=== PATIENT | male | born 1975 | race Caucasian/White ===

== ENCOUNTER 2020-05-18 21:54 | Inpatient (IN) | payer MEDICAID ==
[~2020-05-18] VITALS: Ht 175.3 cm; Wt 109.7 kg
[2020-05-18 23:45] LABS: BASOPHILS # (AUTO) 0.1 X10'3 (0-0.2); EOSINOPHILS # (AUTO) 0.1 X10'3 (0-0.9); MEAN CORPUSCULAR HEMOGLOBIN 31.7 PG (27.0-31.0); MEAN CORPUSCULAR HGB CONC 33.7 g/dL (33.0-36.5); MONOCYTES # (AUTO) 0.9 X10'3 (0-0.9)
[2020-05-18 23:46] LABS: BASOPHILS % (AUTO) 0.8 % (0-1); EOSINOPHILS % (AUTO) 1.1 % (0-6); HEMATOCRIT 53.3 % (42.0-52.0); HEMOGLOBIN 17.9 g/dl (14.0-17.9); LYMPHOCYTES # (AUTO) 2.1 X10'3 (1.1-4.8); LYMPHOCYTES % (AUTO) 19.7 % (21-51); MEAN CORPUSCULAR VOLUME 94.1 FL (78-98); MEAN PLATELET VOLUME 9.1 FL (7.4-10.4); MONOCYTES % (AUTO) 8.3 % (2-12); NEUTROPHILS # (AUTO) 7.4 X10'3 (1.8-7.7); NEUTROPHILS % (AUTO) 70.1 % (42-75); PLATELET COUNT 138 X10'3 (140-440); RED BLOOD COUNT 5.67 X10'6 (4.70-6.10); RED CELL DISTRIBUTION WIDTH 15.2 % (11.5-14.5); WHITE BLOOD COUNT 10.5 X10'3 (4.5-11.0)
[2020-05-19 00:05] LABS: ALANINE AMINOTRANSFERASE 63 U/L (12-78); ALBUMIN 3.3 G/DL (3.4-5.0); ALBUMIN/GLOBULIN RATIO 0.9 (1.1-1.5); ALKALINE PHOSPHATASE 101 IU/L (46-116); ANION GAP 13 (8-16); ASPARTATE AMINO TRANSFERASE 46 U/L (10-37); BILIRUBIN,TOTAL 0.7 MG/DL (0.1-1.0); BLOOD UREA NITROGEN 36 MG/DL (7-18); BUN/CREATININE RATIO 30.5 (5.4-32.0); CALCIUM 8.8 MG/DL (8.5-10.1); CHLORIDE 111 MMOL/L (99-107); CREATININE 1.18 MG/DL (0.60-1.10); GLUCOSE 83 MG/DL (70-104); SODIUM 144 MMOL/L (135-145); TOTAL CARBON DIOXIDE 20.2 MMOL/L (24-32); TOTAL PROTEIN 6.9 G/DL (6.4-8.2); eGFR 66 ML/MIN
[2020-05-19 00:12] LABS: POTASSIUM 4.4 MMOL/L (3.5-5.1)
[2020-05-19 00:13] LABS: MAGNESIUM 2.1 MG/DL (1.5-2.4)
--- NOTE | 2020-05-19 00:23 | NUR ---
pt up to br. non slip socks put on him. he reports pain to his feet. ambulating with slow but steady gait independantly. bp 140/109, otherwise vss.
--- NOTE | 2020-05-19 00:28 | NUR ---
lab at bedside to draw ptt.
[2020-05-19 01:02] LABS: PARTIAL THROMBOPLASTIN TIME 28 SECONDS (22-32)
[2020-05-19] MEDS ORDERED: HYDR-3972 PO (02:09)
[2020-05-19] MEDS ORDERED: potassium Cl 40MEQ/1/2NS 520ml 520 ML IV PRN ×2 (02:10)
[2020-05-19] MEDS ORDERED: magnesium 2GM in 50ml NS 50 ML IV PRN (02:10)
[2020-05-19] MEDS ORDERED: acetaminophen 325mg tablet PO PRN (02:10)
[2020-05-19] MEDS ORDERED: magnesium Cl slow-release 64mg tablet PO PRN (02:10)
[2020-05-19] MEDS ORDERED: ondansetron/PF 4mg/2ml inj IV PRN (02:10)
[2020-05-19] MEDS ORDERED: mag hydrox/Alum hydrox/simeth 30ml oral suspension PO PRN (02:10)
[2020-05-19] MEDS ORDERED: magnesium 4gm in 100ml NS 100 ML IV PRN (02:10)
[2020-05-19] MEDS ORDERED: morphine 2 MG/ML inj. syringe IV PRN (02:10)
[2020-05-19] MEDS ORDERED: potassium Cl 20 mEq SR tablet PO PRN ×2 (02:10)
[2020-05-19] MEDS ORDERED: magnesium hydroxide 30ml (MOM) UD suspension PO PRN (02:10)
--- NOTE | 2020-05-19 03:00 | NUR ---
PT GIVEN WATER & A SANDWICH
--- NOTE | 2020-05-19 04:05 | NUR ---
PT PLACED ON HOSPITAL BED FOR COMFORT
[2020-05-19] MEDS: K and/or MAG REPLACEMENT MC SCH ×2 (08:00→19:43)
[2020-05-19] MEDS: furosemide 40mg/4ml inj IV SCH ×2 (08:59→19:37)
--- NOTE | 2020-05-19 17:10 | NUR ---
Report received from ED RN, Lacey
--- NOTE | 2020-05-19 17:50 | NUR ---
Pt arrived from ED
[2020-05-19 18:00] VITALS: BP 132/89
--- NOTE | 2020-05-19 18:30 | NUR ---
Problems reprioritized. Patient report given, questions answered & plan of care reviewed with DWIGHT Du.
--- NOTE | 2020-05-19 18:56 | NUR ---
Patient in room PCU 3023. I have received report from Maria Luz QUINTANILLA and had the opportunity to ask questions and assume patient care.
[2020-05-19] MEDS: diltiazem CD 180mg cap (once-daily) PO SCH (20:38)
[2020-05-19 22:00] VITALS: BP 123/87
[2020-05-20] MEDS: HYDROcodone/acetaminophen 5mg/325mg tablet PO PRN ×2 (01:00→21:48)
[2020-05-20 02:00] VITALS: BP 132/93
[2020-05-20 06:00] VITALS: BP 131/85
--- NOTE | 2020-05-20 06:07 | NUR ---
Problems reprioritized. Patient report given, questions answered & plan of care reviewed with Tamiko QUINTANILLA.
--- NOTE | 2020-05-20 06:30 | NUR ---
Patient in room PCU 3023. I have received report from DWIGHT Du and had the opportunity to ask questions and assume patient care.
[2020-05-20 06:38] LABS: BASOPHILS # (AUTO) 0.1 X10'3 (0-0.2); BASOPHILS % (AUTO) 0.5 % (0-1); EOSINOPHILS # (AUTO) 0.2 X10'3 (0-0.9); EOSINOPHILS % (AUTO) 1.7 % (0-6); HEMATOCRIT 51.4 % (42.0-52.0); HEMOGLOBIN 17.4 g/dl (14.0-17.9); LYMPHOCYTES # (AUTO) 2.1 X10'3 (1.1-4.8); LYMPHOCYTES % (AUTO) 21.8 % (21-51); MEAN CORPUSCULAR HEMOGLOBIN 31.8 PG (27.0-31.0); MEAN CORPUSCULAR HGB CONC 33.7 g/dL (33.0-36.5); MEAN CORPUSCULAR VOLUME 94.2 FL (78-98); MEAN PLATELET VOLUME 8.9 FL (7.4-10.4); MONOCYTES # (AUTO) 0.8 X10'3 (0-0.9); NEUTROPHILS # (AUTO) 6.4 X10'3 (1.8-7.7); PLATELET COUNT 138 X10'3 (140-440); RED BLOOD COUNT 5.46 X10'6 (4.70-6.10); RED CELL DISTRIBUTION WIDTH 15.1 % (11.5-14.5); WHITE BLOOD COUNT 9.4 X10'3 (4.5-11.0)
[2020-05-20 06:41] LABS: ALANINE AMINOTRANSFERASE 53 U/L (12-78); ALBUMIN 3.1 G/DL (3.4-5.0); ALBUMIN/GLOBULIN RATIO 0.9 (1.1-1.5); ALKALINE PHOSPHATASE 89 IU/L (46-116); ANION GAP 7 (8-16); ASPARTATE AMINO TRANSFERASE 29 U/L (10-37); BILIRUBIN,TOTAL 0.9 MG/DL (0.1-1.0); BLOOD UREA NITROGEN 41 MG/DL (7-18); BUN/CREATININE RATIO 32.3 (5.4-32.0); CALCIUM 8.5 MG/DL (8.5-10.1); CHLORIDE 105 MMOL/L (99-107); CREATININE 1.27 MG/DL (0.60-1.10); GLUCOSE 111 MG/DL (70-104); POTASSIUM 4.3 MMOL/L (3.5-5.1); SODIUM 137 MMOL/L (135-145); TOTAL CARBON DIOXIDE 24.9 MMOL/L (24-32); TOTAL PROTEIN 6.5 G/DL (6.4-8.2); eGFR 61 ML/MIN
[2020-05-20] MEDS: K and/or MAG REPLACEMENT MC SCH ×2 (07:09→20:00)
[2020-05-20] MEDS: furosemide 40mg/4ml inj IV SCH ×2 (08:49→20:09)
[2020-05-20] MEDS: diltiazem CD 180mg cap (once-daily) PO SCH (08:49)
[2020-05-20] MEDS ORDERED: FLU VACC QS2020-21(6MOS UP)/PF 60 MCG/0.5 ML SYRINGE IMVAC ONE (10:00)
[2020-05-20] MEDS ORDERED: pneumococcal 23-VAL P-sac vacc 25 mcg/0.5ml vial IMVAC ONE (10:00)
[2020-05-20 11:38] VITALS: BP 119/78
[2020-05-20 15:00] VITALS: BP 95/66
[2020-05-20 17:39] LABS: URINE AMPHETAMINE SCREEN POSITIVE (Neg); URINE BARBITUATE SCREEN NEGATIVE (Neg); URINE BENZODIAZEPINES SCREEN NEGATIVE (Neg); URINE CANNABINOID SCREEN NEGATIVE (Neg); URINE COCAINE SCREEN NEGATIVE (Neg); URINE METHADONE SCREEN NEGATIVE (Neg); URINE OPIATE SCREEN POSITIVE (Neg); URINE PHENCYCLIDINE SCREEN NEGATIVE (Neg)
[2020-05-20 18:00] VITALS: BP 118/73
--- NOTE | 2020-05-20 18:06 | NUR ---
Problems reprioritized. Patient report given, questions answered & plan of care reviewed with DWIGHT Du.
--- NOTE | 2020-05-20 18:30 | NUR ---
Patient in room PCU 3023. I have received report from Tamiko QUINTANILLA and had the opportunity to ask questions and assume patient care.
[2020-05-20] MEDS: sildenafil citrate 20mg tablet PO SCH (20:09)
[2020-05-20] MEDS: heparin, porcine 5000 units/ml vial SQ SCH (20:14)
[2020-05-20 22:00] VITALS: BP 119/70
[2020-05-21 02:00] VITALS: BP 112/72
--- NOTE | 2020-05-21 06:21 | NUR ---
Patient in room PCU 3023. I have received report from Ana Laura QUINTANILLA and had the opportunity to ask questions and assume patient care.
--- NOTE | 2020-05-21 06:25 | NUR ---
Problems reprioritized. Patient report given, questions answered & plan of care reviewed with Leisa QUINTANILLA.
[2020-05-21 06:51] VITALS: BP_SYST 106; BP_SYST 118; BP_DIAS 55; BP_DIAS 77
[2020-05-21 06:51] LABS: BASOPHILS % (AUTO) 0.4 % (0-1); EOSINOPHILS # (AUTO) 0.1 X10'3 (0-0.9); EOSINOPHILS % (AUTO) 1.2 % (0-6); HEMATOCRIT 48.5 % (42.0-52.0); HEMOGLOBIN 16.3 g/dl (14.0-17.9); LYMPHOCYTES % (AUTO) 22.3 % (21-51); MEAN CORPUSCULAR HEMOGLOBIN 31.7 PG (27.0-31.0); MEAN CORPUSCULAR HGB CONC 33.6 g/dL (33.0-36.5); MEAN CORPUSCULAR VOLUME 94.4 FL (78-98); MONOCYTES # (AUTO) 0.8 X10'3 (0-0.9); MONOCYTES % (AUTO) 9.4 % (2-12); NEUTROPHILS # (AUTO) 5.9 X10'3 (1.8-7.7); NEUTROPHILS % (AUTO) 66.7 % (42-75); PLATELET COUNT 139 X10'3 (140-440); RED BLOOD COUNT 5.14 X10'6 (4.70-6.10); RED CELL DISTRIBUTION WIDTH 15.2 % (11.5-14.5); WHITE BLOOD COUNT 8.9 X10'3 (4.5-11.0)
[2020-05-21 07:10] LABS: ALANINE AMINOTRANSFERASE 44 U/L (12-78); ALBUMIN 2.8 G/DL (3.4-5.0); ALBUMIN/GLOBULIN RATIO 0.9 (1.1-1.5); ALKALINE PHOSPHATASE 85 IU/L (46-116); ANION GAP 9 (8-16); ASPARTATE AMINO TRANSFERASE 29 U/L (10-37); BILIRUBIN,TOTAL 0.7 MG/DL (0.1-1.0); BLOOD UREA NITROGEN 41 MG/DL (7-18); BUN/CREATININE RATIO 30.1 (5.4-32.0); CHLORIDE 104 MMOL/L (99-107); CREATININE 1.36 MG/DL (0.60-1.10); GLUCOSE 92 MG/DL (70-104); POTASSIUM 4.2 MMOL/L (3.5-5.1); SODIUM 140 MMOL/L (135-145); TOTAL CARBON DIOXIDE 27.2 MMOL/L (24-32); TOTAL PROTEIN 5.9 G/DL (6.4-8.2); eGFR 56 ML/MIN
[2020-05-21] MEDS: K and/or MAG REPLACEMENT MC SCH (07:48)
[2020-05-21] MEDS: furosemide 40mg/4ml inj IV SCH (07:52)
[2020-05-21] MEDS: diltiazem CD 180mg cap (once-daily) PO SCH (07:52)
[2020-05-21] MEDS: sildenafil citrate 20mg tablet PO SCH ×2 (07:52→13:20)
[2020-05-21] MEDS: heparin, porcine 5000 units/ml vial SQ SCH (07:52)
[2020-05-21] MEDS ORDERED: pneumococcal 23-VAL P-sac vacc 25 mcg/0.5ml vial IMVAC ONE (10:00)
[2020-05-21] MEDS ORDERED: FLU VACC QS2020-21(6MOS UP)/PF 60 MCG/0.5 ML SYRINGE IMVAC ONE (10:00)
[2020-05-21 11:09] VITALS: BP 100/60
[2020-05-21] MEDS ORDERED: DILT180C66 PO (11:24)
[2020-05-21] MEDS ORDERED: FURO-150 PO (11:24)
[2020-05-21] MEDS ORDERED: POTA10TA36 PO (11:24)
[2020-05-21] MEDS ORDERED: ALBU8.5H8 INH (11:24)
[2020-05-21] MEDS ORDERED: SILD20TA PO (11:24)
--- NOTE | 2020-05-21 13:43 | NUR ---
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 Patient VSS and WNL. Paper work signed for discharge. All belongings including cell phone home on discharge. Patient dressed himself and able to ambulate independently. Patient aware of when his next doses for home medications are and written on paper work. Patient aware to make all follow up appointments including follow up for CHF. Patient established at [facility] with Dr Javed Amato. Patient will follow up with Dr. Montoya in 3-5 days, established patient with the MD. Reviewed use of Lasix and its use and need. Patient acknowledges understanding verbally.
== END 2020-05-21 13:37 | disposition home or self-care (01) | DRG 194 ==
LOC: ER 21:55 → ED HOLD 05-19 02:08 → PCU 3S 05-19 17:51
PROVIDERS: ADMIT Family Medicine; ATTEND Family Medicine
PROC: 3E0234Z Introduction of Serum, Toxoid and Vaccine into Muscle, Percutaneous Approach (ICD-10-PCS; principal; 2020-05-21)
PROC: 3E02340 Introduction of Influenza Vaccine into Muscle, Percutaneous Approach (ICD-10-PCS; 2020-05-21)
DX: I50.33 Acute on chronic diastolic (congestive) heart failure (principal); J96.20 Acute and chronic respiratory failure, unspecified whether with hypoxia or hypercapnia; E87.2 Acidosis; F15.10 Other stimulant abuse, uncomplicated; N17.0 Acute kidney failure with tubular necrosis; I27.81 Cor pulmonale (chronic); I27.20 Pulmonary hypertension, unspecified; J45.909 Unspecified asthma, uncomplicated; Z72.0 Tobacco use; Z90.49 Acquired absence of other specified parts of digestive tract; Z91.14 Patient's other noncompliance with medication regimen; Z91.19 Patient's noncompliance with other medical treatment and regimen; Z23 Encounter for immunization; Z79.899 Other long term (current) drug therapy; Z71.6 Tobacco abuse counseling; Z71.51 Drug abuse counseling and surveillance of drug abuser
CPT/HCPCS: 36415; 71045; 80053; 80305; 83605; 83735; 83880; 84145; 84484; 85025; 85610; 85730; 87040; 87081; 90732; 93005; 93306; 93308; 96374; 99285; G0378; J1644; J1940; Q2039

== ENCOUNTER 2020-06-23 22:26 | Emergency (ER) | payer MEDICAID ==
[~2020-06-23] VITALS: Ht 175.3 cm; Wt 102.0 kg
[~2020-06-23 22:26] MED LIST: ALBU8.5H8 INH; DILT180C66 PO; HYDR-3972 PO; POTA10TA36 PO; SILD20TA PO
[2020-06-23 23:42] LABS: BASOPHILS % (AUTO) 0.5 % (0-1); EOSINOPHILS # (AUTO) 0.1 X10'3 (0-0.9); EOSINOPHILS % (AUTO) 1.1 % (0-6); HEMATOCRIT 52.8 % (42.0-52.0); HEMOGLOBIN 17.5 g/dl (14.0-17.9); LYMPHOCYTES # (AUTO) 2.3 X10'3 (1.1-4.8); LYMPHOCYTES % (AUTO) 22.1 % (21-51); MEAN CORPUSCULAR HEMOGLOBIN 31.5 PG (27.0-31.0); MEAN CORPUSCULAR HGB CONC 33.1 g/dL (33.0-36.5); MEAN CORPUSCULAR VOLUME 95.2 FL (78-98); MEAN PLATELET VOLUME 9.5 FL (7.4-10.4); MONOCYTES # (AUTO) 0.8 X10'3 (0-0.9); NEUTROPHILS % (AUTO) 68.3 % (42-75); PLATELET COUNT 148 X10'3 (140-440); RED BLOOD COUNT 5.55 X10'6 (4.70-6.10); RED CELL DISTRIBUTION WIDTH 15.1 % (11.5-14.5); WHITE BLOOD COUNT 10.2 X10'3 (4.5-11.0)
[2020-06-23 23:52] LABS: ALANINE AMINOTRANSFERASE 44 U/L (12-78); ALBUMIN 3.7 G/DL (3.4-5.0); ALKALINE PHOSPHATASE 119 IU/L (46-116); ANION GAP 15 (8-16); ASPARTATE AMINO TRANSFERASE 29 U/L (10-37); BILIRUBIN,TOTAL 0.9 MG/DL (0.1-1.0); BLOOD UREA NITROGEN 29 MG/DL (7-18); BUN/CREATININE RATIO 20.7 (5.4-32.0); CALCIUM 9.1 MG/DL (8.5-10.1); CHLORIDE 107 MMOL/L (99-107); GLUCOSE 95 MG/DL (70-104); POTASSIUM 3.9 MMOL/L (3.5-5.1); SODIUM 145 MMOL/L (135-145); TOTAL CARBON DIOXIDE 23.5 MMOL/L (24-32); TOTAL PROTEIN 7.5 G/DL (6.4-8.2); eGFR 55 ML/MIN
[2020-06-24] MEDS ORDERED: furosemide 10 MG/1 ML 10ml inj IV ONE (02:15)
[2020-06-24] MEDS ORDERED: furosemide 20 MG/2 ML vial IV ONE (02:15)
[2020-06-24 02:39] VITALS: BP 129/9
--- NOTE | 2020-06-24 02:55 | NUR ---
Reflex lactic redraw not needed, not sepsis case.
== END 2020-06-24 02:58 | disposition home or self-care (01) ==
LOC: ER 22:27
DX: R60.0 Localized edema (principal); I50.9 Heart failure, unspecified; I27.20 Pulmonary hypertension, unspecified; J45.909 Unspecified asthma, uncomplicated; E11.9 Type 2 diabetes mellitus without complications; F15.90 Other stimulant use, unspecified, uncomplicated; Z90.89 Acquired absence of other organs; Z72.89 Other problems related to lifestyle; Z79.899 Other long term (current) drug therapy
CPT/HCPCS: 36415; 71045; 76937; 80053; 83605; 83880; 84484; 85025; 93005; 96374; 99285; J1940

== ENCOUNTER 2020-09-20 03:59 | Emergency (ER) | payer MEDICAID ==
[~2020-09-20] VITALS: Ht 175.3 cm; Wt 109.6 kg
[2020-09-20 04:05] VITALS: BP 151/108
== END 2020-09-20 04:53 | disposition home or self-care (01) ==
LOC: ER 04:00
DX: R05 Cough (principal); I50.9 Heart failure, unspecified; J45.909 Unspecified asthma, uncomplicated; E11.9 Type 2 diabetes mellitus without complications; F15.90 Other stimulant use, unspecified, uncomplicated; Z90.89 Acquired absence of other organs; Z72.89 Other problems related to lifestyle; Z79.899 Other long term (current) drug therapy
CPT/HCPCS: 71046; 99283

== ENCOUNTER 2020-10-07 02:56 | Emergency (ER) | payer MEDICAID ==
[~2020-10-07] VITALS: Ht 175.3 cm; Wt 105.0 kg
[2020-10-07] MEDS ORDERED: furosemide 20MG tablet PO ONE (03:35)
[2020-10-07] MEDS ORDERED: POTASSIUM BICARB 20meq eff tab 20 MEQ TABLET.EFF PO ONE (03:35)
[2020-10-07 03:51] VITALS: BP 136/104
== END 2020-10-07 04:45 | disposition home or self-care (01) ==
LOC: ER 02:57
DX: R60.0 Localized edema (principal); I27.20 Pulmonary hypertension, unspecified; I50.9 Heart failure, unspecified; E11.9 Type 2 diabetes mellitus without complications; J45.909 Unspecified asthma, uncomplicated; F15.90 Other stimulant use, unspecified, uncomplicated; Z90.49 Acquired absence of other specified parts of digestive tract; Z72.89 Other problems related to lifestyle; Z79.899 Other long term (current) drug therapy
CPT/HCPCS: 71045; 99283